=== PATIENT | female | born 1960 | race Caucasian/White ===

== ENCOUNTER 2024-01-13 13:53 | Emergency (ER) | payer BC, SELFPAY ==
[2024-01-13 14:10] VITALS: BP 127/77; PULSE 95; RESP 18; TEMP 36; O2SAT 99
--- NOTE | 2024-01-13 14:43 | ED.GENADULT ---
HPI - General Adult General Chief complaint: Extremity Injury, Lower Stated complaint: Leg Injury Time Seen by Provider: 01/13/24 14:30 Source: patient, RN notes reviewed and old records reviewed Mode of arrival: ambulatory Limitations: no limitations History of Present Illness HPI narrative: 63-year-old female presents to the [facility] with bilateral lower leg pain, contusion, large avulsion of skin noted to the right anterior lower leg. Bleeding is controlled. Patient states that she was splitting wood when the wood came back and hit her lower legs. Happened approximately 11:00 a.m. this morning Painful with walking Reports up-to-date on tetanus, similar event in September Related Data Allergies Allergy/AdvReac Type Severity Reaction Status Date / Time ceftriaxone AdvReac Severe Itching, Verified 01/13/24 17:41 RASH azithromycin [From Zithromax] AdvReac Intermediate 0 Verified 01/13/24 17:41 dexamethasone AdvReac Intermediate Other Verified 01/13/24 17:41 levofloxacin [From Levaquin] AdvReac Intermediate Insomnia Verified 01/13/24 17:41 morphine AdvReac Intermediate Vomiting Verified 01/13/24 17:41 prednisone AdvReac Intermediate Other Verified 01/13/24 17:41 Penicillins AdvReac Mild Rash Verified 01/13/24 17:41 DECONGESTANTS AdvReac Intermediate TACHYCARDIA Uncoded 01/13/24 17:41 Review of Systems Review of Systems: All systems reviewed & are unremarkable except as noted in HPI and below Constitutional: Constitutional: Reports no additional constitutional complaints Eyes: Eyes: Reports no additional eye complaints ENT: Reports system reviewed and no additional complaints, except as documented Cardiovascular: Cardiovascular: Reports no additional cardiovascular complaints, Denies chest pain and Denies dyspnea Respiratory: Respiratory: Reports no additional respiratory complaints, Denies chest congestion, Denies cough and Denies dyspnea Gastrointestinal: Gastrointestinal: Reports no additional gastrointestinal complaints, Denies abdominal pain, Denies nausea and Denies vomiting Musculoskeletal: Musculoskeletal: Reports as per HPI Integumentary/Breasts: Skin/Breast: Reports as per HPI Neurologic: Reports system reviewed and no additional complaints, except as documented Psychiatric: Psychiatric: Reports no additional psychiatric complaints Allergic/Immunologic: Allergic/Immunologic: Reports no additional allergic/immunologic complaints PMFSH Past Medical History Medical History GERD (gastroesophageal reflux disease) Seasonal allergies Surgical History Surgical History History of cholecystectomy 08/2001 History of partial hysterectomy 1996 History of surgical removal of ganglion cyst bilateral hands History of vascular surgery 10/21 varicose vein L leg stripping Social History Social History Smoking status: Former smoker Tobacco type: cigarettes Smoking end date: 11/20/86 Alcohol intake: never Substance use: never Substance use type: does not use Lack of Transportation: No Lack of Food: Never True Current Housing: I Have Housing Concerned About Future Housing: No Difficulty Paying Gas/Electric Bills: No Difficulty Paying for Meds: No Currently Unemployed: No Education: High School Diploma/GED Difficulty w/ Childcare or Family Care: No Living arrangements: with family Occupation/Education: retired Gender identity (if verbalized by the patient): Female Sexual Orientation (if Verbalized by the Patient): Straight or Heterosexual Comments At the time of my signature, I reviewed and agree with the nursing past medical, surgical, social, and family history. There is no relevant family history pertinent to the patient complaint. Exam Const: General: cooperative, healthy appearing, comfor
== END 2024-01-13 14:50 | disposition short-term general hospital (02) ==
LOC: EXPTROY 13:55
PROVIDERS: Emergency Provider Nurse Practitioner; PCP Physician Assistant Medical
DX: S80.12XA Contusion of left lower leg, initial encounter (principal); S81.801A Unspecified open wound, right lower leg, initial encounter; W22.8XXA Striking against or struck by other objects, initial encounter; K21.9 Gastro-esophageal reflux disease without esophagitis; Z87.891 Personal history of nicotine dependence
CPT/HCPCS: 99212; G0463

== ENCOUNTER 2024-01-13 15:03 | Emergency (ER) | payer BC, SELFPAY ==
--- NOTE | ~2024-01-13 | XR_ITS ---
EXAM: XR tibia fibula RT 2V, XR tibia fibula LT 2V DATE: 01/13/2024 16:18 (accession [id number]), 01/13/2024 16:19 (accession [id number]) HISTORY: trauma;laceration below R knee after log hit her lower legs . COMPARISON: None available. FINDINGS: Normal mineralization. No fracture or dislocation. No lytic or blastic lesion. Mild degene rative changes in the knees and ankles. No erosion or periosteal change. Soft tissue swelling in the mid left woo. Soft tissue swelling and soft tissue defect in the mid right woo. IMPRESSION: No acute osseous finding in the left or right tibia/fibula. Reviewed, dictated and finalized at location [facility] IMPRESSION: No acute osseous finding in the left or right tibia/fibula.
[2024-01-13 15:44] VITALS: BP 112/90; PULSE 59; RESP 18; TEMP 36.4; O2SAT 98
[2024-01-13 17:40] VITALS: BP 127/76; PULSE 86; RESP 18; O2SAT 98
--- NOTE | 2024-01-13 18:43 | ED.LOWEXIN ---
HPI - Extremity Injury (Lower) General Chief Complaint: Extremity Injury, Lower Stated Complaint: leg injury Time Seen by Provider: 01/13/24 17:46 History of Present Illness HPI Narrative: Patient is a 63-year-old female presenting with leg injury. Patient states that she was splitting wood when a piece of wood flew into both of her legs. States that she sustained a large skin tear to her right lower leg. She was seen at urgent care who advised that she come to the ER for further evaluation. States that her pain was decently controlled with Tylenol but she took that about 6 hours ago. States that she actually had a large skin avulsion about 6 months ago that just healed. Her Tdap was updated at that time. She denies further injuries or complaints. Related Data Allergies Allergy/AdvReac Type Severity Reaction Status Date / Time ceftriaxone AdvReac Severe Itching, Verified 01/13/24 17:41 RASH azithromycin [From Zithromax] AdvReac Intermediate 0 Verified 01/13/24 17:41 dexamethasone AdvReac Intermediate Other Verified 01/13/24 17:41 levofloxacin [From Levaquin] AdvReac Intermediate Insomnia Verified 01/13/24 17:41 morphine AdvReac Intermediate Vomiting Verified 01/13/24 17:41 prednisone AdvReac Intermediate Other Verified 01/13/24 17:41 Penicillins AdvReac Mild Rash Verified 01/13/24 17:41 DECONGESTANTS AdvReac Intermediate TACHYCARDIA Uncoded 01/13/24 17:41 Review of Systems Review of Systems: All systems reviewed & are unremarkable except as noted in HPI and below PMFSH Past Medical History Medical History GERD (gastroesophageal reflux disease) Seasonal allergies Surgical History Surgical History History of cholecystectomy 08/2001 History of partial hysterectomy 1996 History of surgical removal of ganglion cyst bilateral hands History of vascular surgery 10/21 varicose vein L leg stripping Social History Social History Smoking status: Former smoker Tobacco type: cigarettes Smoking end date: 11/20/86 Alcohol intake: never Substance use: never Substance use type: does not use Lack of Transportation: No Lack of Food: Never True Current Housing: I Have Housing Concerned About Future Housing: No Difficulty Paying Gas/Electric Bills: No Difficulty Paying for Meds: No Currently Unemployed: No Education: High School Diploma/GED Difficulty w/ Childcare or Family Care: No Living arrangements: with family Occupation/Education: retired Gender identity (if verbalized by the patient): Female Sexual Orientation (if Verbalized by the Patient): Straight or Heterosexual Exam Narrative: GENERAL: Nontoxic, no acute distress, pleasant cooperative HEAD: Normocephalic, atraumatic. EYES: PERRLA and EOMI. ENT: grossly unremarkable NECK: Supple. CHEST: No respiratory distress. HEART: Regular rate and rhythm. EXTREMITIES: Normal range of motion. No edema. SKIN: Warm, dry, 7x5cm skin tear anterior right lower extremity NEURO: No focal deficits. Alert and oriented x3. PSYCH: Normal mood and affect. Course Vital Signs Vital signs: Vital Signs Temperature 97.6 F 01/13/24 15:44 Pulse Rate 59 L 01/13/24 15:44 Respiratory Rate 18 01/13/24 15:44 Blood Pressure 112/90 01/13/24 15:44 Pulse Oximetry 98 01/13/24 15:44 Oxygen Delivery Room Air 01/13/24 15:44 Temperature 97.6 F 01/13/24 15:44 Pulse Rate 78 01/13/24 20:15 Respiratory Rate 16 01/13/24 20:15 Blood Pressure 126/65 01/13/24 20:15 Pulse Oximetry 98 01/13/24 20:15 Oxygen Delivery Room Air 01/13/24 15:44 MDM - Extremity Injury (Lower) MDM Narrative Medical decision making narrative: 63-year-old female presenting with a large skin tear to her right lower extremity. Vitals stable. Exam remarka
[2024-01-13] MEDS: LIDOCAINE, EPINEPHRINE, TETRACAINE VISCOUS SOLN 3 ML TOPICAL (18:44)
[2024-01-13] MEDS: ACETAMINOPHEN 500 MG TABLET 1000 MG PO (18:47)
--- NOTE | 2024-01-13 19:22 | PC.NURSE ---
Assumed care of pt. Bedside report from KENIA Mccann. Pt resting quietly per cart with spouse at bedside.
[2024-01-13 19:23] VITALS: BP 143/78; PULSE 78; RESP 14; O2SAT 98
--- NOTE | 2024-01-13 19:46 | PC.NURSE ---
Pt's wound on R woo steristripped by ERP. Telfa and coban placed. Wound car teaching completed.
[2024-01-13 20:15] VITALS: BP 126/65; PULSE 78; RESP 16; O2SAT 98
== END 2024-01-13 20:17 | disposition home or self-care (01) ==
PROVIDERS: Emergency Provider Emergency Medicine; PCP Physician Assistant Medical
DX: S81.811A Laceration without foreign body, right lower leg, initial encounter (principal); S80.12XA Contusion of left lower leg, initial encounter; K21.9 Gastro-esophageal reflux disease without esophagitis; Z90.49 Acquired absence of other specified parts of digestive tract; Z87.891 Personal history of nicotine dependence; W20.8XXA Other cause of strike by thrown, projected or falling object, initial encounter
CPT/HCPCS: 73590; 99284; A9270

== ENCOUNTER 2024-09-03 00:56 | Day surgery (SDC) | payer BC, SELFPAY ==
[2024-08-14 15:14] VITALS: BMI 33.5
[2024-09-03 08:20] VITALS: BP 131/74; PULSE 84; RESP 20; TEMP 35.7; O2SAT 98; BMI 33.2
[2024-09-03] MEDS: LACTATED RINGERS 1,000 ML 150 ML IV CONT (08:30)
--- NOTE | 2024-09-03 08:44 | WPDANESEPPF ---
Anes - Initial Pre Proc Eval Procedure: Operation Date: 09/03/24 09:30 Proposed Procedures p Colonoscopy - Abiel Ya MD Date/Time: 09/03/24 08:44 Surgeon: Abiel Ya MD Pre Op Diagnosis: Personal history colon polyps Patient Data Age: 64 Gender: F Height: 1.73 m Weight: 99 kg Last Vital Signs Temp 35.7 C L 09/03/24 08:20 Pulse 84 09/03/24 08:20 Resp 20 09/03/24 08:20 BP 131/74 09/03/24 08:20 Pulse Ox 98 09/03/24 08:20 O2 Del Method Room Air 09/03/24 08:20 Allergies Allergy/AdvReac Type Severity Reaction Status Date / Time ceftriaxone AdvReac Severe Itching, Verified 09/03/24 08:19 RASH azithromycin [From Zithromax] AdvReac Intermediate 0 Verified 09/03/24 08:19 dexamethasone AdvReac Intermediate Other Verified 09/03/24 08:19 levofloxacin [From Levaquin] AdvReac Intermediate Insomnia Verified 09/03/24 08:19 morphine AdvReac Intermediate Vomiting Verified 09/03/24 08:19 prednisone AdvReac Intermediate Other Verified 09/03/24 08:19 Penicillins AdvReac Mild Rash Verified 09/03/24 08:19 DECONGESTANTS AdvReac Intermediate TACHYCARDIA Uncoded 09/03/24 08:19 Home Medications Medication Instructions Recorded Confirmed Type ipratropium 20 mcg-albuterol 100 1 puff inhalation Q6H PRN 03/09/23 09/03/24 Rx mcg/actuation mist for inhalation bronchospasm #4 grams (Combivent Respimat) montelukast 10 mg tablet 10 mg PO DAILY #90 tabs 03/21/24 09/03/24 Rx (Singulair) pantoprazole 40 mg tablet,delayed 40 mg PO QHS #90 tabs 03/21/24 09/03/24 Rx release Patient hx anesthesia problems: none Family hx anesthesia problems: none Results Review: All pre-operative results and documents have been reviewed as part of the pre-operative evaluation. [facility] Past Medical History Medical History GERD (gastroesophageal reflux disease) History of colon polyps Seasonal allergies Surgical History Surgical History History of cholecystectomy 08/2001 History of partial hysterectomy 1996 History of surgical removal of ganglion cyst bilateral hands History of vascular surgery 10/21 varicose vein L leg stripping Social History Social History Social History: 08/26/24 declined SDOH Smoking status: Former smoker Tobacco type: cigarettes Smoking end date: 11/20/86 Additional smoking assessment comments: 38 years ago Alcohol intake: never Substance use: never Substance use type: does not use Do You Feel Safe in your Home?: Yes Lack of Transportation: No Lack of Food: Never True Current Housing: I Have Housing Concerned About Future Housing: No Difficulty Paying Gas/Electric Bills: No Difficulty Paying for Meds: No Currently Unemployed: No Education: High School Diploma/GED Difficulty w/ Childcare or Family Care: No Living arrangements: with family Occupation/Education: retired Gender identity (if verbalized by the patient): Female Sexual Orientation (if Verbalized by the Patient): Straight or Heterosexual Spiritual care concerns: No Anes - Eval Final PreProcedure Day of Procedure 09/03/24 08:44 Patient weight: obese Heart: regular rate and rhythm Lungs: clear to auscultation Airway: Mallampati scale class II Neurological: alert and oriented Last oral intake: >/= 8 hours ASA classification: II Emergent: no Anesthetic plan: proceed Anesthesia type and monitoring: general GIVS and standard monitoring Results Review: All pre-operative results and documents have been reviewed as part of the pre-operative evaluation. Informed Consent: The patient's anesthetic plan and its attendant risks and benefits were discussed with the patient/family/POA. Questions were solicited and answers provided to the satisfaction of the patient/family/POA.
--- NOTE | 2024-09-03 09:15 | PM.HPGS ---
History of Present Illness History of Present Illness Consent: Risks, benefits, and alternatives have been discussed and questions answered. Patient agrees to proceed with procedure. Chief complaint: colon screen Narrative: Heather Sepulveda is a 64 year old female with last colonoscopy 10 years ago Review of Systems Review of Systems: All systems reviewed & are unremarkable except as noted in HPI and below PMFSH Past Medical History Medical History (Updated 09/03/24 @ 09:16 by Abiel Ya MD) Colon cancer screening GERD (gastroesophageal reflux disease) History of colon polyps Seasonal allergies Surgical History Surgical History History of cholecystectomy 08/2001 History of partial hysterectomy 1996 History of surgical removal of ganglion cyst bilateral hands History of vascular surgery 10/21 varicose vein L leg stripping Social History Social History Social History: 08/26/24 declined SDOH Smoking status: Former smoker Tobacco type: cigarettes Smoking end date: 11/20/86 Additional smoking assessment comments: 38 years ago Alcohol intake: never Substance use: never Substance use type: does not use Do You Feel Safe in your Home?: Yes Lack of Transportation: No Lack of Food: Never True Current Housing: I Have Housing Concerned About Future Housing: No Difficulty Paying Gas/Electric Bills: No Difficulty Paying for Meds: No Currently Unemployed: No Education: High School Diploma/GED Difficulty w/ Childcare or Family Care: No Living arrangements: with family Occupation/Education: retired Gender identity (if verbalized by the patient): Female Sexual Orientation (if Verbalized by the Patient): Straight or Heterosexual Spiritual care concerns: No Meds Home Medications and Allergies Home Medications Medication Instructions Recorded Confirmed Type ipratropium 20 mcg-albuterol 100 1 puff inhalation Q6H PRN 03/09/23 09/03/24 Rx mcg/actuation mist for inhalation bronchospasm #4 grams (Combivent Respimat) montelukast 10 mg tablet 10 mg PO DAILY #90 tabs 03/21/24 09/03/24 Rx (Singulair) pantoprazole 40 mg tablet,delayed 40 mg PO QHS #90 tabs 03/21/24 09/03/24 Rx release Allergies Allergy/AdvReac Type Severity Reaction Status Date / Time ceftriaxone AdvReac Severe Itching, Verified 09/03/24 08:19 RASH azithromycin [From Zithromax] AdvReac Intermediate 0 Verified 09/03/24 08:19 dexamethasone AdvReac Intermediate Other Verified 09/03/24 08:19 levofloxacin [From Levaquin] AdvReac Intermediate Insomnia Verified 09/03/24 08:19 morphine AdvReac Intermediate Vomiting Verified 09/03/24 08:19 prednisone AdvReac Intermediate Other Verified 09/03/24 08:19 Penicillins AdvReac Mild Rash Verified 09/03/24 08:19 DECONGESTANTS AdvReac Intermediate TACHYCARDIA Uncoded 09/03/24 08:19 Vital Signs Vital Signs - 24 hr 09/03/24 08:20 Temperature 96.3 F L Pulse Rate 84 Respiratory Rate 20 Blood Pressure 131/74 Pulse Oximetry 98 Oxygen Delivery Room Air Exam Const: General: comfortable and no acute distress HENMT: Face/Nose/Sinus: Normal nares present Eyes: General: appearance normal, both eyes and all related structures Neck: Neck: no JVD Resp: Auscultation: clear to auscultation bilaterally Cardio: Rate: regular rate Rhythm: regular rhythm GI: Inspection: non-distended GI Palp: Yes Soft to palpation Skin: General skin exam: normal color Neuro: General: gait normal Speech: normal speech Extrem: General: normal to inspection Psych: Mental Status: mental status grossly normal Assessment and Plan Assessment and plan (1) Colon cancer screening: Code(s): Z12.11 - Encounter for screening for malignant neoplasm of colon Status: Acute Assessment and Plan: colonoscopy
[2024-09-03 09:42] VITALS: BP 112/60; PULSE 94; RESP 20; O2SAT 95
[2024-09-03 09:52] VITALS: BP 101/54; PULSE 81; RESP 16; O2SAT 98
[2024-09-03 10:02] VITALS: BP 105/57; PULSE 79; RESP 20; O2SAT 96
== END 2024-09-03 10:22 | disposition home or self-care (01) ==
PROVIDERS: PCP Physician Assistant Medical; Visit Provider Internal Medicine Gastroenterology
PROC: 0DJD8ZZ Inspection of Lower Intestinal Tract, Via Natural or Artificial Opening Endoscopic (ICD-10-PCS; CPT 45378; principal; 2024-09-03 09:30)
DX: Z12.11 Encounter for screening for malignant neoplasm of colon (principal); K64.8 Other hemorrhoids; K57.30 Diverticulosis of large intestine without perforation or abscess without bleeding; K21.9 Gastro-esophageal reflux disease without esophagitis; E66.9 Obesity, unspecified; Z68.33 Body mass index [BMI] 33.0-33.9, adult; Z79.51 Long term (current) use of inhaled steroids; Z98.890 Other specified postprocedural states; Z90.49 Acquired absence of other specified parts of digestive tract; Z87.891 Personal history of nicotine dependence; Z86.0100 Personal history of colon polyps, unspecified
CPT/HCPCS: 45378; J2003; J2704; J7120